=== PATIENT | male | born 1950 | race Caucasian/White ===

== ENCOUNTER 2017-10-09 13:35 | Emergency (ER) | payer OTHER, MEDICARE ==
[~2017-10-09] VITALS: Ht 175.3 cm; Wt 88.5 kg
[2017-10-09] MEDS ORDERED: ATOR40TA PO (13:48)
[2017-10-09] MEDS ORDERED: TRULICITY (13:48)
--- NOTE | 2017-10-09 14:09 | NUR ---
Patient discharged to home in stable conditon. Written and verbal after care instructions given. Patient verbalizes understanding of instructions. Stable and steady gait
[2017-10-09 14:10] VITALS: BP 141/75
== END 2017-10-09 14:10 | disposition home or self-care (01) ==
LOC: ER 13:35
DX: S67.22XA Crushing injury of left hand, initial encounter (principal); E11.9 Type 2 diabetes mellitus without complications; E78.00 Pure hypercholesterolemia, unspecified; W23.0XXA Caught, crushed, jammed, or pinched between moving objects, initial encounter; Y92.89 Other specified places as the place of occurrence of the external cause; Y93.89 Activity, other specified; Y99.8 Other external cause status
CPT/HCPCS: 73130; A4663